=== PATIENT | female | born 1995 | race Caucasian/White ===

== ENCOUNTER → 2019-05-26 | Outpatient (CLI) | payer OTHER ==
--- NOTE | 2019-05-27 11:11 | RADIOLOGY REPORT (SQ) ---
EXAM DESCRIPTION: MRI LUMBAR SPINE WITHOUT; MRI PELVIS WITHOUT COMPLETED DATE/TIME: 05/26/2019 9:29 pm REASON FOR STUDY: M54.5 LOW BACK PAIN; R10.2 PELVIC AND PERINEAL PAIN M54.5 LOW BACK PAIN R10.2 PE LVIC AND PERINEAL PAIN COMPARISON: None. TECHNIQUE: Non contrast lumbar spine and osseous pelvis scanning. Sagittal and Axial imaging includ es T1, T2, STIR and gradient echo sequences. Coronal T2/HASTE imaging. LIMITATIONS: None. FINDINGS: LUMBAR SPINE VISUALIZED UPPER ABDOMEN: Limited evaluation. No acute or suspicious findings suggested. SEGMENTATION: No transitional anatomy. The lowest well-developed disc space is labeled L5-S1. ALIGNMENT: Anatomic. VERTEBRAE: Intact. BONE MARROW: Normal. No marrow replacement or reactive changes. DISC SIGNAL: Normal. No significant abnormal signal or loss of height. POSTERIOR ELEMENTS: Generally intact. No pars defect evident. HARDWARE: None in the spine. CORD AND CONUS: Normal in size and signal intensity. Conus at the appropriate level. SOFT TISSUES: No aortic aneurysm seen. No bulky retroperitoneal adenopathy or mass. No paraspinal mas s or fluid. L1-L2: No significant spinal stenosis or exit foraminal stenosis. L2-L3: No significant spinal stenosis or exit foraminal stenosis. L3-L4: No significant spinal stenosis or exit foraminal stenosis. L4-L5: No significant spinal stenosis or exit foraminal stenosis. L5-S1: No significant spinal stenosis or exit foraminal stenosis. LOWER THORACIC: Incompletely imaged. No stenosis seen. SACRUM: Please see pelvic MRI below. OTHER: No other significant findings. PELVIS MARROW SIGNAL: Normal. Intact SI joints and symphysis pubis. HIPS: No evidence of effusion, fracture or AVN. Symmetric appearance of the hip joints without javid s dysplastic changes suggested. INTRAPELVIC SOFT TISSUES: Simple appearing 3 cm left ovarian region cyst. Of no clinical significan ce in a patient of this age. No suspicious pelvic mass or fluid. EXTRAPELVIC SOFT TISSUES: Unremarkable. No inguinal adenopathy or hernia. No muscle tear or bursit is. IMPRESSION: 1. Normal MRI of the lumbar spine. 2. Normal MRI of the osseous pelvis. TECHNICAL DOCUMENTATION: JOB ID: [id number] [employer]- All Rights Reserved Reading location - IP/workstation name: [email or web address]
== END ==
LOC: RAD 19:01
PROVIDERS: ATTEND Physician Assistant
DX: M54.5 Low back pain (principal); N83.292 Other ovarian cyst, left side; R10.2 Pelvic and perineal pain
CPT/HCPCS: 72148; 72195